=== PATIENT | female | born 1990 | race Two or more races ===

== ENCOUNTER 2023-01-13 08:38 | Emergency (ER) | payer MEDICAID ==
[2023-01-13 09:17] VITALS: BP 118/65; O2SAT 100
[2023-01-13] MEDS: KETOROLAC 60 MG/2 ML VIAL IM STA (10:44)
[2023-01-13] MEDS: HYDROmorphone 1 MG/ML CARPUJECT IM STA (10:44)
[2023-01-13] MEDS: DEXAMETHASONE 10 MG/ML VIAL IM STA (10:45)
--- NOTE | 2023-01-13 10:57 | ED Physician Documentation ---
History of Present Illness - Stated complaint Stated Complaint: BACK PX - Chief complaint Chief Complaint: Back Pain - History obtained from History obtained from: Patient - Additonal information Additional information: The patient comes to the emergency department chief complaint of ongoing back pain. 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 The patient at that time was treated symptomatically in the emergency department and given meloxicam and cyclobenzaprine to take as an outpatient. The patient states that this helped some but she is continue to work her physical job and it seems like the back pain just has really not gone away. She states she did not feel any specific pop or snap or a particular twinge of pain when the injury first happened. 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 She denies any abdominal pain or urinary symptoms. No pain or numbness in her lower extremities. No difficulty walking in terms of using her legs. PD PAST MEDICAL HISTORY - Past Medical History Past Medical History: Yes Endocrine/Autoimmune: Type 2 diabetes - Past Surgical History Past Surgical History: No - Present Medications Home Medications: Ambulatory Orders Medication Instructions Recorded Confirmed Acetaminophen [Tylenol] 650 mg PO Q6H PRN #30 tab 11/24/22 Lidocaine Patch 5% [Lidoderm Patch] 1 patch TOP DAILY PRN #10 patch 11/24/22 Cyclobenzaprine [Flexeril] 10 mg PO TID PRN #20 tablet 01/13/23 Meloxicam 15 mg PO BID PRN #30 tab 01/13/23 predniSONE [Deltasone] 10 mg PO [id number] #42 tab 01/13/23 - Allergies Allergies/Adverse Reactions: Allergies Allergy/AdvReac Type Severity Reaction Status Date / Time No Known Drug Allergies Allergy Verified 11/24/22 10:07 - Social History Does the pt smoke?: No Smoking Status: Never smoker PD ED PE NORMAL - Vitals Vital signs reviewed: Yes - General General: Alert and oriented X 3, No acute distress, Well developed/nourished - HEENT HEENT: Atraumatic, PERRL, EOMI, Moist mucous membranes - Neck Neck: Supple, no meningeal sign - Respiratory Respiratory: No respiratory distress - Abdomen Abdomen: Soft, Non tender, Non distended - Back Back: No spinal TTP, Other (Tenderness across bilateral lumbar and sacral paraspinal musculature. No SI tenderness.) - Derm Derm: Normal color, Warm and dry, No rash - Extremities Extremities: No deformity, No edema - Neuro Neuro: Alert and oriented X 3, No motor deficit, No sensory deficit, Other (Grossly intact otherwise) - Psych Psych: Normal mood, Normal affect Results - Vitals Vitals: Vital Signs - 24 hr 01/13/23 08:53 Temperature 36.3 C L Heart Rate 77 Respiratory 18 Rate Blood Pressure 118/65 O2 Saturation 100 Oxygen O2 Source Room air PD Medical Decision Making - ED course Complexity details: considered differential, d/w patient, d/w family ED course: The patient had already been worked up with x-ray the last time she was here and had still not managed to even make an appoint with primary care in the nearly 2 months since she was seen her last. I discussed with her that probably the best diagnostic study to evaluate her ongoing discomfort would be MRI, but this would not be indicated emergently today. I discussed with the patient that the other issue is that of her physical job is causing her to have ongoing discomfort such that it is limiting her ability to function well, then she needs to consider a different line of work. At very least, the patient could probably benefit from some weeks off of work to allow her back to calm down. For now, I have treated her symptomatically in the emergency department and will prescribe the meloxicam and cyclobenzaprine she had last time, as well as a steroid taper. The patient is advised that she needs to be very proactive about getting into see primary care as we cannot continue to treat her ongoing low back pain here in the emergency department. We have discussed the usual indications for return. Departure - Departure Disposition: 01 Home, Self Care Clinical Impression: Back pain Qualifiers: Back pain location: low back pain Chronicity: chronic Back pain laterality: bilateral Sciatica presence: without sciatica Qualified Code(s): M54.50 - Low back pain, unspecified Condition: Stable Instructions: ED Low Back Pain Injury Prescriptions: predniSONE [Deltasone] 10 mg PO [id number] #42 tab Cyclobenzaprine [Flexeril] 10 mg PO TID PRN #20 tablet PRN Reason: Spasms Meloxicam 15 mg PO BID PRN #30 tab PRN Reason: Pain 1-4 Comments: At this point in time, it is most likely that your ongoing back pain has been perpetuated by continual exposure to activities that aggravate your low back at work. Ideally, the best approach to this kind of pain is to stop the activities that are making it worse, at least for several weeks. I know this is practically difficult, but when possible, it would be good to consider a job ch estee to something that is not quite so taxing. As far as the pain you are having, there is no evidence of emergent complications of what ever is causing it. As such, there is no indication for emergency MRI today. However, MRI is the test that would be best for follow-up evaluation of your ongoing pain, this can be ordered by primary care. It is important that you get established with primary care as soon as possible, as chronic pain is not treated through the emergency department, and it is important to try to get to the bottom of what is causing the symptoms. For now, we will refill the medication she had before and also placed on a steroid taper. Please use ice, heat, stretching, and massage to help with some of the back discomfort. Prescriptions have been electronically transmitted to the [facility] pharmacy in [place], your pharmacy of choice on record. Forms: Activity restrictions
== END 2023-01-13 11:45 | disposition home or self-care (01) ==
LOC: ED 08:38
DX: M54.50 Low back pain, unspecified (principal); E11.9 Type 2 diabetes mellitus without complications
CPT/HCPCS: 96372; 99283; J1170

== ENCOUNTER 2023-03-21 11:24 | Emergency (ER) | payer MEDICAID, OTHER ==
[2023-03-21 11:49] VITALS: BP 128/86; O2SAT 100
--- NOTE | 2023-03-21 12:01 | ED Physician Documentation ---
PD HPI DYSPNEA - Stated complaint Stated Complaint: CONGESTION/BODY ACHE - Chief complaint Chief Complaint: Resp - History obtained from History obtained from: Patient - Additional information Additional information: 32-year-old woman with diet-controlled type 2 diabetes has been sick for about 4 days with bodyaches, sore throat congestion and chills. Multiple family members sick with similar illnesses. No measured fevers. Home COVID testing negative. PD PAST MEDICAL HISTORY - Past Medical History Past Medical History: Yes Endocrine/Autoimmune: Type 2 diabetes - Past Surgical History Past Surgical History: No - Present Medications Home Medications: Ambulatory Orders Medication Instructions Recorded Confirmed No Known Home Medications 03/21/23 03/21/23 - Allergies Allergies/Adverse Reactions: Allergies Allergy/AdvReac Type Severity Reaction Status Date / Time No Known Drug Allergies Allergy Verified 03/21/23 11:45 - Social History Does the pt smoke?: No Smoking Status: Never smoker Does the pt drink ETOH?: No Does the pt have substance abuse?: No - POLST Patient has POLST: No PD ED PE NORMAL - Vitals Vital signs reviewed: Yes - General General: Alert and oriented X 3, No acute distress - HEENT HEENT: Ears normal, Pharynx benign - Neck Neck: Supple, no meningeal sign, No bony TTP - Cardiac Cardiac: RRR, No murmur - Respiratory Respiratory: No respiratory distress, Clear bilaterally - Abdomen Abdomen: Non tender - Derm Derm: No rash - Neuro Neuro: Alert and oriented X 3, Normal speech Results - Vitals Vitals: Vital Signs - 24 hr 03/21/23 11:41 Temperature 36.1 C L Heart Rate 72 Respiratory 18 Rate Blood Pressure 128/86 H O2 Saturation 100 Oxygen O2 Source Room air - Labs Labs: Laboratory Tests 03/21/23 12:06 POC Whole Bld Glucose 320 H PD Medical Decision Making - ED course ED course: 32-year-old woman with diet-controlled type 2 diabetes has a flulike illness. She appears well and nontoxic. Multiple family members ill with similar syndrome. Conservative care advised. Fingerstick blood sugar was done requested by the patient. It was 320. I asked the patient if she wanted to continue aggressive home diet and exercise measures versus starting meds and she would like the former and will follow-up with her doctor. Departure - Departure Disposition: Home, Self Care Clinical Impression: Upper respiratory tract infection Qualifiers: URI type: unspecified viral URI Qualified Code(s): J06.9 - Acute upper respiratory infection, unspecified Condition: Good Record reviewed to determine appropriate education?: Yes Instructions: ED Viral Syndrome Comments: Tylenol and/or ibuprofen per package instructions for aches and pains. You shou ld be better over the next few days, follow-up with your doctor mid-to-late week if not improving. Return for new or worsening symptoms. Drink plenty of fluids and rest. Forms: PCP List, Activity restrictions
== END 2023-03-21 12:21 | disposition home or self-care (01) ==
LOC: ED 11:24
DX: J06.9 Acute upper respiratory infection, unspecified (principal); E11.9 Type 2 diabetes mellitus without complications
CPT/HCPCS: 99282; 99283

== ENCOUNTER 2023-06-03 19:07 | Emergency (ER) | payer MEDICAID ==
[2023-06-03 19:36] LABS: RAPID STREP SCREEN POSITIVE (Negative)
--- NOTE | 2023-06-03 20:04 | ED Physician Documentation ---
History of Present Illness - Stated complaint Stated Complaint: SORE THROAT/EAR PX - Chief complaint Chief Complaint: Heent - History obtained from History obtained from: Patient - Additonal information Additional information: 32yF p/w sore throat, BL ear fullness, chills and body aches X 2-3 days. denies cough. Review of Systems Constitutional: reports: Fever, Chills, Myalgias, Fatigue Throat: reports: Sore throat Cardiac: denies: Chest pain / pressure Respiratory: denies: Dyspnea, Cough PD PAST MEDICAL HISTORY - Past Medical History Endocrine/Autoimmune: Type 2 diabetes - Past Surgical History Past Surgical History: No - Present Medications Home Medications: Ambulatory Orders Medication Instructions Recorded Confirmed Amoxicillin 875 mg PO BID #28 tablet 06/03/23 - Allergies Allergies/Adverse Reactions: Allergies Allergy/AdvReac Type Severity Reaction Status Date / Time No Known Drug Allergies Allergy Verified 06/03/23 19:23 - Social History Does the pt smoke?: No Smoking Status: Never smoker Does the pt drink ETOH?: No Does the pt have substance abuse?: No - POLST Patient has POLST: No PD ED PE NORMAL - Vitals Vital signs reviewed: Yes - General General: Alert and oriented X 3, No acute distress, Well developed/nourished - HEENT HEENT: Atraumatic, PERRL, EOMI, Ears normal (BL TMs clear), Moist mucous membranes, Pharynx benign, Other (no tonsills s/p adenoidectomy) - Neck Neck: Supple, no meningeal sign Results - Vitals Vitals: Vital Signs - 24 hr 06/03/23 06/03/23 19:16 20:33 Temperature 37.1 C Heart Rate 88 88 Respiratory 17 19 Rate Blood Pressure 140/80 H 142/80 H O2 Saturation 100 98 Oxygen O2 Source Room air - Labs Labs: Laboratory Tests 06/03/23 06/03/23 19:00 19:00 Nasal Adenovirus (PCR) NOT DETECTED Nasal B. parapertussis DNA (PCR) NOT DETECTED Nasal Coronavir 229E PCR NOT DETECTED Nasal Coronavir HKU1 PCR NOT DETECTED Nasal Coronavir NL63 PCR NOT DETECTED Nasal Coronavir OC43 PCR NOT DETECTED Nasal Enterovir/Rhinovir PCR NOT DETECTED Nasal Influenza B PCR NOT DETECTED Nasal Influenza A PCR NOT DETECTED Nasal Parainfluen 1 PCR NOT DETECTED Nasal Parainfluen 2 PCR NOT DETECTED Nasal Parainfluen 3 PCR NOT DETECTED Nasal Parainfluen 4 PCR NOT DETECTED Nasal RSV (PCR) NOT DETECTED Nasal B.pertussis DNA PCR NOT DETECTED Nasal C.pneumoniae (PCR) NOT DETECTED Chris Human Metapneumo PCR NOT DETECTED Nasal M.pneumoniae (PCR) NOT DETECTED Nasal SARS-CoV-2 (PCR) NOT DETECTED Group A Strep Rapid POSITIVE H PD Medical Decision Making - ED course ED course: 32yF p/w strep throat. antibiotics prescription provided and note for work. return precautions given. plan to f/u pcp. Departure - Departure Disposition: 01 Home, Self Care Clinical Impression: Strep throat Condition: Stable Instructions: ED Strep Pharyngitis Conf Prescriptions: Amoxicillin 875 mg PO BID #28 tablet Comments: You were seen in the emergency department for strep throat. Antibiotics were sent electronically to [facility] pharmacy. You can also get cepacol throat drops over the counter with lidocaine in them. Please follow-up with your primary care provider and return to the emergency department if you have any new or worsening symptoms or other concerns. Forms: PCP List, Activity restrictions Discharge Date/Time: 06/03/23 20:33
[2023-06-03] MEDS: LIDOCAINE VISCOUS 2% 15 ML ORAL SYRINGE MM STA (20:15)
[2023-06-03 20:20] LABS: B. PARAPERTUSSIS- RESP PCR PAN NOT DETECTED; B. PERTUSSIS- RESP PCR PANEL NOT DETECTED; C. PNEUMONIAE- RESP PCR PANEL NOT DETECTED; CORONAVIRUS 229E-RESP PCR NOT DETECTED; CORONAVIRUS HKU1-RESP PCR NOT DETECTED; CORONAVIRUS NL63-RESP PCR NOT DETECTED; CORONAVIRUS OC43-RESP PCR NOT DETECTED; HUMAN METAPNEUMOVIRUS NOT DETECTED; INFLUENZA A- RESP PCR PANEL NOT DETECTED; INFLUENZA B - RESP PCR PANEL NOT DETECTED; M. PNEUMONIAE- RESP PCR PANEL NOT DETECTED; PARAINFLUENZA VIRUS 1 NOT DETECTED; PARAINFLUENZA VIRUS 2 NOT DETECTED; PARAINFLUENZA VIRUS 3 NOT DETECTED; PARAINFLUENZA VIRUS 4 NOT DETECTED; RHINOVIRUS/ENTEROVIRUS NOT DETECTED; RSV- RESP PCR PANEL NOT DETECTED; SARS-CoV-2 -RESP PCR PANEL NOT DETECTED
[2023-06-03 20:40] VITALS: BP 142/80; O2SAT 98
== END 2023-06-03 20:33 | disposition home or self-care (01) ==
LOC: ED 19:07
DX: J02.0 Streptococcal pharyngitis (principal); E11.9 Type 2 diabetes mellitus without complications; Z11.52 Encounter for screening for COVID-19
CPT/HCPCS: 87430; 87633; 99283

== ENCOUNTER 2023-08-07 07:04 | Emergency (ER) | payer MEDICAID, OTHER ==
[2023-08-07 07:50] LABS: BILIRUBIN,URINE NEGATIVE (NEGATIVE); GLUCOSE, URINE (UA) >=1000 mg/dL (NEGATIVE); KETONES,URINE (UA) TRACE mg/dL (NEGATIVE); LEUKOCYTE ESTERASE, URINE NEGATIVE (NEGATIVE); NITRITE,URINE NEGATIVE (NEGATIVE); OCCULT BLOOD,URINE NEGATIVE (NEGATIVE); PROTEIN,URINE NEGATIVE (NEGATIVE); UROBILINOGEN,URINE 0.2 (NORMAL) E.U./dL (NORMAL)
[2023-08-07 07:51] LABS: CLARITY,URINE CLEAR (CLEAR); HCG UR QUAL NEGATIVE
--- NOTE | 2023-08-07 08:32 | ED Physician Documentation ---
PD HPI BACK PAIN - Stated complaint Stated Complaint: FEMALE - Chief complaint Chief Complaint: UTI - History obtained from History obtained from: Patient - History of Present Illness Timing - onset: How many days ago (2) Timing - duration: Days (2) Timing - details: Gradual onset, Still present Location: Lower, Right, Left Quality: Pain, Spasm, Sharp Associated symptoms: Other (urinary frequency and pain). No: Fever, Weakness, Numbness, Incontinent of urine, Unable to urinate, Hematuria, Incontinent of stool Improves with: Position Worsened by: Movement Similar symptoms before: Diagnosis (UTI) Recently seen: Not recently seen - Additional information Additional information: Yasmin stoddard it is is a 32-year-old female with untreated type 2 diabetes. She is presenting to the emergency department today with a 2-day history of lower back pain and urinary frequency with pain. She has had similar symptoms previously with urinary tract infection. She states that she has had type II by diabetes for years and she has not been treating it. She does indicate that she is drinking a lot of water and she is urinating frequently. She has a family history of type 2 diabetes in both her mother and father. Review of Systems Constitutional: denies: Fever Eyes: denies: Decreased vision Ears: denies: Ear pain Nose: denies: Congestion Throat: denies: Sore throat Cardiac: denies: Chest pain / pressure, Palpitations Respiratory: denies: Dyspnea, Cough GI: denies: Abdominal Pain, Nausea, Vomiting, Constipation, Diarrhea : reports: Dysuria, Frequency Skin: denies: Rash Musculoskeletal: reports: Back pain. denies: Neck pain, Extremity pain PD PAST MEDICAL HISTORY - Past Medical History Past Medical History: Yes Endocrine/Autoimmune: Type 2 diabetes - Past Surgical History Past Surgical History: No - Present Medications Home Medications: Ambulatory Orders Medication Instructions Recorded Confirmed metFORMIN [Glucophage] 500 mg PO BIDWM #40 tablet 08/07/23 - Allergies Allergies/Adverse Reactions: Allergies Allergy/AdvReac Type Severity Reaction Status Date / Time No Known Drug Allergies Allergy Verified 08/07/23 07:17 - Social History Does the pt smoke?: No Smoking Status: Never smoker Does the pt drink ETOH?: Yes Does the pt have substance abuse?: No - Immunizations Immunizations are current?: Yes - POLST Patient has POLST: No PD ED PE NORMAL - Vitals Vital signs reviewed: Yes (hypertensive diastolic mild) - General General: Alert and oriented X 3, No acute distress, Well developed/nourished - HEENT HEENT: Atraumatic, PERRL, EOMI - Neck Neck: Supple, no meningeal sign, No bony TTP - Cardiac Cardiac: RRR, No murmur - Respiratory Respiratory: No respiratory distress, Clear bilaterally - Abdomen Abdomen: Normal bowel sounds, Soft, Non tender, Non distended, No organomegaly - Back Back: No CVA TTP, No spinal TTP, Other (mild tenderness to the lower back across the insertion of the trapezius to the illiac.) - Derm Derm: Normal color, Warm and dry, No rash - Extremities Extremities: No deformity, No edema - Neuro Neuro: Alert and oriented X 3, solution specialist 2-12 intact, No motor deficit, No sensory deficit, Normal speech Eye Opening: Spontaneous Motor: Obeys Commands Verbal: Oriented GCS Score: 15 - Psych Psych: Normal mood, Normal affect Results - Vitals Vitals: Vital Signs - 24 hr 08/07/23 08/07/23 07:18 11:39 Temperature 36.5 C Heart Rate 82 71 Respiratory 16 18 Rate Blood Pressure 122/84 H 122/77 O2 Saturation 99 100 Oxygen O2 Source Room air - Labs Labs: Laboratory Tests 08/07/23 08/07/23 08/07/23 07:41 08:46 08:46 WBC 9.1 RBC 4.84 Hgb 13.6 Hct 40.9 MCV 84.5 MCH 28.1 MCHC 33.3 RDW 12.4 Plt Count 221 MPV 10.5 Neut # (Auto) 5.6 Lymph # (Auto) 2.9 Milam # (Auto) 0.4 Eos # (Auto) 0.1 Baso # (Auto) 0.1 Absolute Nucleated RBC 0.00 Nucleated RBC % 0.0 Sodium 133 L Potassium 4.0 Chloride 100 L Carbon Dioxide 24 Anion Gap 9.0 BUN 8 Creatinine 0.5 L Estimated GFR (MDRD) 143 Glucose 339 H POC Whole Bld Glucose Estimat Average Glucose Hemoglobin A1c % Calcium 9.8 Total Bilirubin 0.7 AST 15 ALT 19 Alkaline Phosphatase 65 Total Protein 7.6 Albumin 4.4 Globulin 3.2 Albumin/Globulin Ratio 1.4 Lipase 24 Urine Color YELLOW Urine Clarity CLEAR Urine pH 7.0 Ur Specific [place] 1.010 Urine Protein NEGATIVE Urine Glucose (UA) >=1000 H Urine Ketones TRACE Urine Occult Blood NEGATIVE Urine Nitrite NEGATIVE Urine Bilirubin NEGATIVE Urine Urobilinogen 0.2 (NORMAL) Ur Leukocyte Esterase NEGATIVE Ur Microscopic Review NOT INDICATED Urine Culture Comments NOT INDICATED Urine HCG, Qual NEGATIVE 08/07/23 08/07/23 08:46 11:10 WBC RBC Hgb Hct MCV MCH MCHC RDW Plt Count MPV Neut # (Auto) Lymph # (Auto) Milam # (Auto) Eos # (Auto) Baso # (Auto) Absolute Nucleated RBC Nucleated RBC % Sodium Potassium Chloride Carbon Dioxide Anion Gap BUN Creatinine Estimated GFR (MDRD) Glucose POC Whole Bld Glucose 271 H Estimat Average Glucose 352 H Hemoglobin A1c % 13.9 H Calcium Total Bilirubin AST ALT Alkaline Phosphatase Total Protein Albumin Globulin Albumin/Globulin Ratio Lipase Urine Color Urine Clarity Urine pH Ur Specific [place] Urine Protein Urine Glucose (UA) Urine Ketones Urine Occult Blood Urine Nitrite Urine Bilirubin Urine Urobilinogen Ur Leukocyte Esterase Ur Microscopic Review Urine Culture Comments Urine HCG, Qual PD Medical Decision Making - ED course Complexity details: reviewed results, re-evaluated patient, considered differential, d/w patient Reviewed Lab Results: We reviewed a complete blood show count showing a normal white blood cell count normal hemoglobin hematocrit and platelets chemistries show a glucose elevated at 339 with a hemoglobin A1c of 13.9 indicating an average glucose of 352. Liver functions are normal. Following administration of saline the serum glucose was 271 urinalysis shows glucose in the urine and the is negative. I interpreted these laboratory results to indicate the patient has hyperglycemia of longstanding duration. ED course: 32-year-old female presenting with urinary frequency and low back pain believing she might have a urinary tract infection appears to have diabetes [id number] and she is not currently taking medication has an A1c indicating a average glucose of 352. I evaluated the patient at the bedside with POCUS and found her IVC to indicate a volume deficit of about 1 L. She was given a liter of saline here in the emergency department her blood glucose went down to 271. I placed the patient back onto some metformin and asked her to follow-up with her primary care doctor for more aggressive treatment of her diabetes. She is leaving to move back to [place] in 10 days.I do not believe there is any evidence of infection on evaluation of the urine. Departure - Departure Disposition: 01 Home, Self Care Clinical Impression: Dehydration Diabetes mellitus out of control Qualifiers: Diabetes mellitus type: type 2 Glycemic state: with hyperglycemia Qualified Code(s): E11.65 - Type 2 diabetes mellitus with hyperglycemia Condition: Stable Instructions: ED Hyperglycemia Diabetic, ED Dehydration Prescriptions: metFORMIN [Glucophage] 500 mg PO BIDWM #40 tablet Comments: Yasmin, today it looks like your type 2 diabetes is out of control and this is likely the reason you are having problems with excessive urination and pain. You were mildly dehydrated we have given you some fluid today and your blood sugar is still elevated. I am recommending you restart your metformin at 500 mg twice per day and this has been E scribed to the [facility] in [place]. A follow-up with your primary care doctor is imperative to gain control of your diabetes. I have given you a number of physicians to follow-up with if needed while you are here [place]. Forms: PCP List Discharge Date/Time: 08/07/23 11:39
[2023-08-07] MEDS: SODIUM CHLORIDE 0.9% 1,000 ML IV STA (08:49)
[2023-08-07 08:52] LABS: BASOPHILS # (AUTO) 0.1 10^3/uL (0.0-0.1); BASOPHILS % (AUTO) 0.8 %; EOSINOPHILS # (AUTO) 0.1 10^3/uL (0.0-0.7); EOSINOPHILS % (AUTO) 1.1 %; HCT - HEMATOCRIT 40.9 % (37.0-47.0); HGB - HEMOGLOBIN 13.6 g/dL (12.0-16.0); LYMPHOCYTES # (AUTO) 2.9 10^3/uL (1.5-3.5); LYMPHOCYTES % (AUTO) 31.6 %; MEAN CORPUSCULAR HEMOGLOBIN 28.1 pg (27.0-31.0); MEAN CORPUSCULAR HGB CONC 33.3 g/dL (32.0-36.0); MEAN CORPUSCULAR VOLUME 84.5 fL (81.0-99.0); MEAN PLATELET VOLUME 10.5 fL (7.9-10.8); MONOCYTES # (AUTO) 0.4 10^3/uL (0.0-1.0); MONOCYTES % (AUTO) 4.5 %; NEUTROPHILS # (AUTO) 5.6 10^3/uL (1.5-6.6); NEUTROPHILS % (AUTO) 61.7 %; PLT - PLATELET COUNT 221 10^3/uL (130-450); RED BLOOD COUNT 4.84 10^6/uL (4.20-5.40); RED CELL DISTRIBUTION WIDTH 12.4 % (12.0-15.0); WHITE BLOOD COUNT 9.1 x10^3/uL (4.8-10.8)
[2023-08-07 09:15] LABS: ALBUMIN 4.4 g/dL (3.2-5.5); ALBUMIN/GLOBULIN RATIO 1.4 (1.0-2.2); BILIRUBIN,TOTAL 0.7 mg/dL (0.2-1.0); CALCIUM 9.8 mg/dL (8.5-10.3); CREATININE 0.5 mg/dL (0.6-1.3); TOTAL PROTEIN 7.6 g/dL (6.4-8.9)
[2023-08-07 09:52] LABS: ESTIMATED AVERAGE GLUCOSE 352 mg/dL (70-100); HEMOGLOBIN A1c% 13.9 % (4.27-6.07)
[2023-08-07 11:43] VITALS: BP 122/77; O2SAT 100
== END 2023-08-07 11:39 | disposition home or self-care (01) ==
LOC: ED 07:04
DX: E86.0 Dehydration (principal); E11.65 Type 2 diabetes mellitus with hyperglycemia
CPT/HCPCS: 36415; 80053; 81001; 81003; 81025; 83036; 83690; 85025; 87086; 99283; 99284